=== PATIENT | female | born 1955 | race Caucasian/White ===

== ENCOUNTER → 2017-05-16 | Day surgery (SDC) | payer OTHER ==
[~2017-05-16] VITALS: Ht 167.6 cm; Wt 81.7 kg
[~2017-05-16] MED LIST: ATOM40 PO; CALC-795 PO; CHOL10008 PO; CLAR10T PO; HYDR12.55 PO; LISI-567 PO; NAPR500T PO; OMEG1CAP55 PO; PROG100C PO; SERT100T PO; Sodium Chloride LOK Flush 10 mL Syringe IV PRN; TUMS PO; VENL75TA3 PO; [UNRECOGNIZED DRUG - CODE] PO; [UNRECOGNIZED DRUG - CODE] PO; [UNRECOGNIZED DRUG - CODE] PO; [UNRECOGNIZED DRUG - CODE] PO; fentaNYL-PF 50 mCg/mL 2 mL Inj IVPUSH PRN
[2017-05-16 12:28] VITALS: BP 132/77; PULSE 69; RESP 16; O2SAT 100
[2017-05-16] MEDS: 0.9% Sodium Chloride 1,000 ML IV SCH ×2 (12:59→13:57)
[2017-05-16 13:30] VITALS: BP 86/46; PULSE 67; RESP 12; O2SAT 99
[2017-05-16 13:40] VITALS: BP 117/71; PULSE 75; RESP 16; O2SAT 100
[2017-05-16 13:50] VITALS: BP 116/81; PULSE 74; RESP 14; O2SAT 100
--- NOTE | 2017-05-16 15:03 | ENDO ---
[address] [address] ENDOSCOPY PROCEDURE PATIENT: MARCO AKBAR : 1955 MR#: [id number] ADMIT: 05/16/2017 JOB ID: [id number] OPERATION: Esophagogastroduodenoscopy (EGD) with biopsy, and colonoscopy. PREOPERATIVE DIAGNOSIS(ES): 1. Gastroesophageal reflux disease. 2. Positive FIT test. POSTOPERATIVE DIAGNOSIS(ES): 1. Normal upper endoscopy, status post biopsy. 2. Small internal hemorrhoids. ANESTHESIA: Fentanyl 75 mcg and Versed 4 mg IV administered. COMPLICATIONS: None. BLOOD LOSS: Minimal. DESCRIPTION OF PROCEDURE: After the risks and benefits were explained to the patient, informed consent was obtained. After anesthesia was administered, the upper endoscope was inserted in the mouth, intubating the esophagus, stomach, and second portion of duodenum, and the mucosa carefully examined. After the procedure was done, the scope was withdrawn and the procedure terminated. The colonoscope was inserted from the rectum to the cecum and the mucosa carefully examined. Prep of the patient was fair. After the procedure was done, the scope was withdrawn and the procedure terminated. FINDINGS: Upon inspection of the esophagus, the esophagus was normal. No masses, ulcers, or lesions. Z-line located 35 cm from the incisors. Upon entering the stomach, the stomach was normal, without masses, ulcers, or lesions. Retroflexion was normal. Duodenal bulb and 1st and 2nd portion were normal. Biopsies taken at the antrum and body of the stomach. Upon inspection of the anus no masses, hemorrhoids, ulcers, or fissures that were seen. Throughout the entire examination there were no polyps, masses, or lesions. Retroflexion showed small internal hemorrhoids. IMPRESSION: Small internal hemorrhoids. Normal upper endoscopy with biopsy. RECOMMENDATION: Await pathology results. Follow up in GI Clinic as needed.
--- NOTE | 2017-05-19 11:09 | PATH ---
SURGICAL PATHOLOGY Attending Physician:Estrada Grewal MD CASE STATUS: Signed Out PATIENT NAME: MARCO AKBAR PID: [id number] : 1955 DATE COLLECTED:05/16/2017 20:30 SPECIMEN: 1: Stomach, Antrum, Biopsy 2: Gastric, Biopsy 3: Esophagus, Biopsy CLINICAL HISTORY: 1). ANTRUM BIOPSY 2). GASTRIC BODY BIOPSY 3). DISTAL ESOPHAGUS BIOPSY FINAL DIAGNOSIS: 1. Antrum Biopsy: Gastric antral mucosa with no diagnostic alterations. Negative for Helicobacter organisms on H&E stains. Negative for intestinal metaplasia. Negative for dysplasia or malignancy. 2. Gastric Body Biopsy: Gastric body mucosa with no diagnostic alterations. Negative for Helicobacter organisms on H&E stains. Negative for intestinal metaplasia. Negative for dysplasia or malignancy. 3. Distal Esophagus Biopsy: Squamous mucosa with no diagnostic alterations. Negative for intestinal/Meyers's metaplasia. Negative for dysplasia or malignancy. Eosinophils are not increased. ICD10: R10.9 GROSS DESCRIPTION: Received three formalin-filled containers, each labeled with the patient' s name. 1. Received in formalin, labeled with the patient' s name and "antrum", are two fragments of laughlin, soft tissue ranging from 0.3 x 0.2 x 0.1 cm to 0.5 x 0.2 x 0.1 cm. The fragments are totally submitted in cassette 1A. 2. Received in formalin, labeled with the patient' s name and "body", are two fragments of laughlin, soft tissue ranging from 0.3 x 0.2 x 0.1 cm to 0.4 x 0.2 x 0.1 cm. The fragments are totally submitted in cassette 2A. 3. Received in formalin, labeled with the patient' s name and "DE", are two fragments of laughlin, soft tissue ranging from 0.2 x 0.1 x 0.1 cm to 0.5 x 0.2 x 0.1 cm. The fragments are totally submitted in cassette 3A. [id number]) MICRO DESCRIPTION: Please see diagnosis. ICD-9 CODES: CPT CODES: 1: 48983 2: 55247 3: 89290 Electronically Signed Out Katy Asfi MD [facility]., [address] [place] [address] Technical component performed at [facility], [address], [place], [address]
== END | disposition home or self-care (01) ==
LOC: END 01:06
PROVIDERS: ATTEND Internal Medicine Gastroenterology
DX: R19.5 Other fecal abnormalities (principal); K64.8 Other hemorrhoids; K21.9 Gastro-esophageal reflux disease without esophagitis
CPT/HCPCS: 43239; 45378; 99153; G0500; J2250; J3010; J7030